=== PATIENT | male | born 1985 | race Two or more races ===

== ENCOUNTER 2021-03-20 09:00 | Emergency (ER) | payer BC, OTHER ==
--- NOTE | 2021-03-20 10:14 | EDM.PDOC ---
ED HPI GENERAL MEDICAL PROBLEM - General Chief Complaint: ENT Problem Stated Complaint: STITCHES IN MOUTH CAME OUT Time Seen by Provider: 03/20/21 09:40 Source of Information: Reports: Patient, Family History Limitations: Reports: No Limitations - History of Present Illness INITIAL COMMENTS - FREE TEXT/NARRATIVE: 35-year-old male had a mucosal procedure 9 days ago when he had a mucocele removed in the left lateral lip. 3 days later it started bleeding so he went into the clinic and got a couple more stitches, it seemed to be good until this morning when he woke up with blood in his mouth. He again has persistent bruising. He is on warfarin. His INR this morning was 2.5. Onset: Unknown/Unsure (Bleeding restarted overnight) Associated Symptoms: Reports: No Other Symptoms - Related Data Allergies Allergy/AdvReac Type Severity Reaction Status Date / Time No Known Allergies Allergy Verified 03/20/21 09:17 Home Meds: Home Meds Aspirin [Halfprin] 81 mg PO DAILY 03/20/21 [History] Warfarin [Coumadin] 5 mg PO DAILY 03/20/21 [History] Zinc Gluconate [Zinc] 50 mg PO DAILY 03/20/21 [History] atenoloL [Atenolol] 25 mg PO DAILY 03/20/21 [History] Past Medical History HEENT History: Reports: Impaired Vision Cardiovascular History: Reports: Hypertension - Past Surgical History Cardiovascular Surgical History: Reports: Valve Replacement, Other (See Below) Other Cardiovascular Surgeries/Procedures: Open heart surgeries x3 Social & Family History - Tobacco Use Tobacco Use Status *Q: Never Tobacco User - Caffeine Use Caffeine Use: Reports: Coffee - Recreational Drug Use Recreational Drug Use: No ED ROS ENT - Review of Systems Review Of Systems: See Below Constitutional: Denies: Fever, Chills HEENT: Reports: Other (Mucosal bleeding, no other complaints) Respiratory: Denies: Shortness of Breath GI/Abdominal: Denies: Nausea, Vomiting Neurological: Denies: Headache ED EXAM, ENT - Physical Exam Exam: See Below Exam Limited By: No Limitations General Appearance: Alert, No Apparent Distress Mouth/Throat: Other (Patient has a 2 cm long open mucosal laceration from a recent surgery on the left lateral lower inner lip which is persistently oozing blood.) Respiratory/Chest: No Respiratory Distress, Lungs Clear Cardiovascular: Regular Rate, Rhythm Course - Vital Signs Last Recorded V/S: Last Vital Signs Temp 97.3 F 03/20/21 09:21 Pulse 63 03/20/21 09:21 Resp 14 03/20/21 09:21 BP 118/77 03/20/21 09:21 Pulse Ox 100 03/20/21 09:21 - Re-Assessments/Exams Free Text/Narrative Re-Assessment/Exam: 03/20/21 10:11 The old clots and granulation tissue was removed from the area and then 1% lidocaine with epinephrine was infiltrated. Reexamination 15 minutes later showed the bleeding had stopped and a small clot had formed in the wound. This was likely due to the epinephrine and the injection. The clot was removed, bleeding started again two 6-0 Vicryl sutures were used close the laceration. This controlled the bleeding. Departure - Departure Time of Disposition: 10:40 Disposition: Home, Self-Care 01 Clinical Impression: Mucosal bleeding - Discharge Information Instructions: Bleeding Precautions When on Anticoagulant Therapy, Pediatric Referrals: PCP,None [Primary Care Provider] - Forms: ED Department Discharge Care Plan Goals: Cold foods for the next few hours like ice water or slushy's may slow down the bleeding. Increase diet slowly as tolerated. Return if bleeding recurs and cannot be controlled. Sepsis Event Note (ED) - Evaluation Sepsis Screening Result: No Definite Risk - Focused Exam Vital Signs: Vital Signs Temp Pulse Resp BP Pulse Ox 03/20/21 09:21 97.3 F 63 14 118/77 100
== END 2021-03-20 10:41 | disposition home or self-care (01) ==
LOC: JP.ED 09:00
DX: L76.22 Postprocedural hemorrhage of skin and subcutaneous tissue following other procedure (principal); I10 Essential (primary) hypertension; Z79.01 Long term (current) use of anticoagulants; Z79.82 Long term (current) use of aspirin; Z79.899 Other long term (current) drug therapy; Z98.890 Other specified postprocedural states; X58.XXXA Exposure to other specified factors, initial encounter
CPT/HCPCS: 12011; 99283-25

== ENCOUNTER 2021-03-22 02:52 | Emergency (ER) | payer BC, OTHER ==
[2021-03-22] MEDS ORDERED: Lidocaine 1% with EPINEPHrine 1:100,000 50 ML MDV SUBCUT STA (03:12)
--- NOTE | 2021-03-22 03:15 | EDM.PDOC ---
ED HPI GENERAL MEDICAL PROBLEM - General Chief Complaint: ENT Problem Stated Complaint: POST OP MOUTH BLEED Time Seen by Provider: 03/22/21 03:08 Source of Information: Reports: Patient, Family, Old Records, RN Notes Reviewed History Limitations: Reports: No Limitations - History of Present Illness INITIAL COMMENTS - FREE TEXT/NARRATIVE: 35-year-old gentleman presents emergency department today with bleeding wound, he had a mucocele removed approximately 2 weeks ago unfortunately the stitches have come out this will be the third time happens while he is asleep. He is on Coumadin for mechanical valve INR check on the was 2.5 - Related Data Allergies Allergy/AdvReac Type Severity Reaction Status Date / Time No Known Allergies Allergy Verified 03/20/21 09:17 Home Meds: Home Meds Aspirin [Halfprin] 81 mg PO DAILY 03/20/21 [History] Warfarin [Coumadin] 5 mg PO DAILY 03/20/21 [History] Zinc Gluconate [Zinc] 50 mg PO DAILY 03/20/21 [History] atenoloL [Atenolol] 25 mg PO DAILY 03/20/21 [History] Past Medical History HEENT History: Reports: Impaired Vision Cardiovascular History: Reports: Hypertension - Past Surgical History Cardiovascular Surgical History: Reports: Valve Replacement, Other (See Below) Other Cardiovascular Surgeries/Procedures: Open heart surgeries x3 Social & Family History - Caffeine Use Caffeine Use: Reports: Coffee ED ROS ENT - Review of Systems Review Of Systems: See Below Constitutional: Reports: No Symptoms HEENT: Reports: Other (Bleeding gums) Respiratory: Reports: No Symptoms Cardiovascular: Reports: No Symptoms ED EXAM, ENT - Physical Exam Exam: See Below Text/Narrative:: Examination of the mouth he does have active bleeding site the mucocele that was removed is is open there is active bleeding there stitches are not present is located lower lip right side Exam Limited By: No Limitations General Appearance: Alert, WD/WN, No Apparent Distress Respiratory/Chest: No Respiratory Distress Course - Vital Signs Last Recorded V/S: Last Vital Signs Temp 96.3 F L 03/22/21 03:11 Pulse 62 03/22/21 03:11 Resp 16 03/22/21 03:11 BP 135/75 03/22/21 03:11 Pulse Ox 100 03/22/21 03:11 - Orders/Labs/Meds Meds: Medications Discontinued Medications Generic Name Dose Route Start Last Admin Trade Name Reshma PRN Reason Stop Dose Admin Lidocaine/Epinephrine 20 ml 03/22/21 03:12 03/22/21 03:21 Lidocaine 1% With Epinephrine 1:100,000 50 Ml Mdv SUBCUT 03/22/21 03:13 20 ml NOW STA Administration Tranexamic Acid 500 mg 03/22/21 03:12 03/22/21 03:22 Tranexamic Acid 1,000 Mg/10 Ml Amp TOP 03/22/21 03:13 500 mg ONETIME ONE Administration Departure - Departure Time of Disposition: 03:56 Disposition: Home, Self-Care 01 Condition: Fair Clinical Impression: Mucosal bleeding - Discharge Information Referrals: PCP,None [Primary Care Provider] - Forms: ED Department Discharge Additional Instructions: Try the teabags if the bleeding starts again, another option would be to try the remainder of your TTX on a tea bag about 1 meal placed this over the bleeding site, follow-up with your primary care upon return home, call or return to the emergency department worsening symptoms Sepsis Event Note (ED) - Focused Exam Vital Signs: Vital Signs Temp Pulse Resp BP Pulse Ox 03/22/21 03:11 96.3 F L 62 16 135/75 100 - Assessment/Plan Plan: Assessment Acuity = acute Site and laterality = postoperative bleeding mucosal site Etiology = stitches were pulled out suspicious for tooth grinding at night he has not been wearing his mouthguard Manifestations = none Location of injury = Home Lab values = none Plan I did review options with him including repair and putting stitches back and he declined the bleeding was stopped with Tranxene Raulito acid he is going to do watchful waiting and follow-up with primary care upon return home This note was dictated using [employer] voice recognition software please call with any questions on syntax or grammar.
== END 2021-03-22 04:06 | disposition home or self-care (01) ==
LOC: JP.ED 02:52
DX: L76.22 Postprocedural hemorrhage of skin and subcutaneous tissue following other procedure (principal); I10 Essential (primary) hypertension; Z79.82 Long term (current) use of aspirin; Z79.01 Long term (current) use of anticoagulants; Z79.899 Other long term (current) drug therapy
CPT/HCPCS: 99283